=== PATIENT | female | born 1990 | race Caucasian/White ===

== ENCOUNTER 2021-05-09 10:49 | Outpatient (CLI) | payer OTHER, SELFPAY ==
--- NOTE | ~2021-05-09 | CT_ITS ---
EXAMINATION: CT abdomen pelvis wo con DATE: 05/09/2021 11:07 INDICATION: Nephrolithiasis presenting with right flank pain and hematuria. TECHNIQUE: Computed tomography (CT) of the abdomen and pelvis was performed without intravenous contr ast. Automated exposure control and iterative reconstruction technique were employed. The dose-length product was 453.52 mGy-cm. COMPARISON: None FINDINGS: Mild atelectasis at the lingula and anterobasal left lower lobe. Visualized inferior heart is normal. No pericardial or pleural effusion. Very small sliding-type hiatal hernia. Mild diffuse hepatic stea tosis. Gallbladder, spleen, pancreas and bilateral adrenal glands are normal. Bilateral nephrolithias is with 9 mm stone in the mid right kidney and a couple additional 2 mm stones at the lower pole of t he right and upper pole of the left kidneys. No hydronephrosis or stones along either the left or rig ht ureters. Bladder is normal. A couple phleboliths in the pelvis. The uterus is not identified and h as likely been surgically resected. Bowels including the appendix are normal. No free intraperitoneal gas or fluid. No pathologically enlarged abdominal or pelvic lymphadenopathy. Bones are unremarkable . IMPRESSION: 1. Bilateral nephrolithiasis. No ureteral stones or hydronephrosis. 2. Very small sliding-type hiatal hernia. Reviewed, dictated and finalized at location A.
== END 2021-05-09 10:50 | disposition home or self-care (01) ==
PROVIDERS: PCP Internal Medicine; Visit Provider Nurse Practitioner
DX: R31.9 Hematuria, unspecified (principal); R10.9 Unspecified abdominal pain; N20.0 Calculus of kidney; K44.9 Diaphragmatic hernia without obstruction or gangrene
CPT/HCPCS: 74176

== ENCOUNTER 2021-05-13 08:04 | Outpatient (CLI) | payer OTHER, SELFPAY ==
--- NOTE | ~2021-05-13 | XR_ITS ---
XR abdomen/kub 1V 05/13/2021 08:26 Indication: Renal stones Procedure: KUB Comparison: CT dated 05/09/2021. Findings: There is a punctate left renal stone partially obscured by bowel content. The right kidney is obscured by bowel content. There are pelvic phleboliths. Nonobstructive bowel gas pattern. Moderat e colonic fecal loading. Impression: 1: Left nephrolithiasis. Reviewed, dictated and finalized at location A. Impression: 1: Left nephrolithiasis.
== END 2021-05-13 08:05 | disposition home or self-care (01) ==
LOC: ANHIMG 08:07
PROVIDERS: PCP Internal Medicine; Visit Provider Urology
DX: N20.0 Calculus of kidney (principal)
CPT/HCPCS: 74018

== ENCOUNTER 2021-05-17 09:15 | Outpatient (CLI) | payer BC, OTHER, SELFPAY ==
--- NOTE | ~2021-05-17 | XR_ITS ---
EXAMINATION: XR abdomen/kub 1V INDICATION: Calcium kidney stone TECHNIQUE: Supine views of the abdomen were obtained on 2 radiographs. COMPARISON: 05/13/2021 FINDINGS: There is a 2 mm stone of the left kidney upper pole. There is a questionable 7 mm stone of the right kidney upper pole. A phlebolith is noted in the left pelvis. The bowel gas pattern is kait l. IMPRESSION: 1. Left nephrolithiasis and possible right nephrolithiasis. Reviewed, dictated and finalized at location B.
== END 2021-05-17 09:16 | disposition home or self-care (01) ==
LOC: ANHIMG 09:20
PROVIDERS: PCP Internal Medicine; Visit Provider Urology
DX: N20.0 Calculus of kidney (principal)
CPT/HCPCS: 74018

== ENCOUNTER 2021-05-18 01:45 | Day surgery (SDC) | payer BC, OTHER, SELFPAY ==
[2021-05-17 16:33] VITALS: BMI 34.7
[2021-05-18] VITALS (9 sets, daily range): BP systolic 118–136; BP diastolic 74–101; PULSE 57–81; RESP 12–19; TEMP 36.2–36.7; O2SAT 92–100
--- NOTE | ~2021-05-18 | XR_ITS ---
EXAMINATION: XR abdomen/kub 1V DATE: 05/18/2021 12:47 INDICATION: Prelithotripsy evaluation TECHNIQUE: A supine view of the abdomen on 2 radiographs was obtained. COMPARISON: 05/17/[address] dated 05/09/2021 FINDINGS: The 7 mm stone at the upper pole of the right kidney seen on the prior CT is likely obscured by gas a nd small amount of stool at the hepatic flexure of the colon. No definitive renal stones identified. A couple tiny phleboliths in the pelvis. No dilated bowel to suggest obstruction. Bones are unremarka ble. IMPRESSION: 1. No renal stones identified. The previously noted stone at the upper pole of the right kidney may b e obscured by the hepatic flexure of the colon. Reviewed, dictated and finalized at location A. IMPRESSION: 1. No renal stones identified. The previously noted stone at the upper pole of the right kidney may be obscured by the hepatic flexure of the colon.
--- NOTE | 2021-05-18 07:01 | WPDHPUPDATE1 ---
History and Physical Update Update Date/Time: 05/18/21 07:01 History and Physical has been reviewed, including an updated exam of the patient. There are NO changes in the patient's condition. Risks, benefits, and alternatives have been discussed and questions answered. Patient agrees to proceed with procedure.
[2021-05-18] MEDS: LACTATED RINGERS 1,000 ML 30 ML IV CONT (13:15)
[2021-05-18 13:33] LABS: Partial Thromboplastin Time 28.6 SECONDS (22.3-36.8); Prothrombin Time 12.7 Seconds (11.1-14.7)
[2021-05-18] MEDS: fentaNYL CITRATE INJ (*CRX) 100 MCG/2 ML VIAL 25 MCG IV PUSH ×5 (13:35→15:29)
[2021-05-18] MEDS: ACETAMINOPHEN 500 MG TABLET 1000 MG PO (13:37)
[2021-05-18 13:38] LABS: Hematocrit 42.5 % (37.0-47.0); Hemoglobin 13.8 g/dL (12.0-15.0)
--- NOTE | 2021-05-18 13:43 | WPDANESEPPF ---
Anes - Initial Pre Proc Eval Procedure: Operation Date: 05/18/21 14:30 Proposed Procedures p Right Renal Extracorporeal Shock Wave Lithotripsy - Jas Riddle MD Date/Time: 05/18/21 13:43 Surgeon: Jas Riddle MD Pre Op Diagnosis: right renal kidney stones Patient Data Age: 30 Gender: F Height: 1.68 m Weight: 97.52 kg Allergies Allergy/AdvReac Type Severity Reaction Status Date / Time No Known Allergies Allergy Unknown Verified 02/22/14 14:35 Home Medications Medication Instructions Recorded Confirmed Type clonazepam 0.5 mg tablet 0.5 mg PO DAILY PRN #20 tablet 05/09/21 05/18/21 Rx duloxetine 30 mg capsule,delayed 30 mg PO DAILY #30 cap 05/09/21 05/18/21 Rx release tramadol 50 mg tablet 50 mg PO Q6H PRN #20 tablet 05/10/21 05/18/21 Rx Laboratory Tests 05/18/21 05/18/21 13:14 13:31 Hgb 13.8 g/dL g/dL (12.0-15.0) Hct 42.5 % % (37.0-47.0) PT 12.7 Seconds Seconds (11.1-14.7) INR 1.0 APTT 28.6 SECONDS SECONDS (22.3-36.8) Patient hx anesthesia problems: other (MOTION SICKNESS) Family hx anesthesia problems: none PMFSH Past Medical History Medical History Anxiety Arthritis Rheumatoid arthritis Surgical History Surgical History H/O tubal ligation History of partial hysterectomy S/P ureteral stent placement Family History Family History Father Depression Anxiety Alcohol abuse Heart disease Cerebrovascular accident Mother Blood clotting disorder Grandparent Diabetes mellitus Hypertension Anxiety Depression Cerebrovascular accident Heart disease Social History Social History Smoking status: Never smoker Alcohol intake: current Anes - Eval Final PreProcedure Day of Procedure 05/18/21 13:43 Patient weight: obese Heart: regular rate and rhythm Lungs: clear to auscultation Airway: Mallampati scale class II Neurological: alert and oriented Last oral intake: >/= 8 hours ASA classification: II Emergent: no Anesthetic plan: proceed Anesthesia type and monitoring: general LMA and standard monitoring Informed Consent: The patient's anesthetic plan and its attendant risks and benefits were discussed with the patient/family/POA. Questions were solicited and answers provided to the satisfaction of the patient/family/POA.
[2021-05-18] MEDS: SCOPOLAMINE 1.5 MG PATCH TRANSDERM (13:57)
[2021-05-18] MEDS: ceFAZolin 2 GM/D5W 50 ML 2 GM/50 ML BAG IVPB (13:58)
--- NOTE | 2021-05-18 14:24 | W.PM.PROC2 ---
Procedure Note - Detailed Date of Procedure 05/18/21 Pre-op Diagnosis right renal kidney stones Post-op Diagnosis same Procedure Performed Right ESWL Surgeon Jas Riddle MD Business Strategist None Anesthesia general Description of Procedure The patient was brought to the operative suite where he was placed in the supine position on the Dornier lithotripsy table. The focal point of the lithotripter was placed at a 9mm right renal calculus. A total of 2500 shocks were delivered at a power setting of 4. There appeared to be good fragmentation of the stone. The patient tolerated the procedure well and was taken to the recovery room in good condition. Estimated Blood Loss 0 Drains No Packing No Pathology none sent Complications No immediate complications Condition stable Disposition PACU
[2021-05-18] MEDS: KETOROLAC 30 MG/ML VIAL (*BKC) IV PUSH (14:33)
[2021-05-18] MEDS: oxyCODONE HCL (*CRX) 5 MG TAB IR PO (15:53)
== END 2021-05-18 16:30 | disposition home or self-care (01) ==
PROVIDERS: Anesthesiology; PCP Internal Medicine; Visit Provider Urology
PROC: (CPT 50590; principal; 2021-05-18 14:30)
DX: N20.0 Calculus of kidney (principal); F41.9 Anxiety disorder, unspecified; M19.90 Unspecified osteoarthritis, unspecified site; M06.9 Rheumatoid arthritis, unspecified; E66.9 Obesity, unspecified; Z68.34 Body mass index [BMI] 34.0-34.9, adult; Z51.81 Encounter for therapeutic drug level monitoring; Z79.899 Other long term (current) drug therapy
CPT/HCPCS: 50590; 36415; 74018; 85014; 85018; 85610; 85730; A9270; J0690; J1100; J1885; J2250; J2405; J2704; J3010; J7120

== ENCOUNTER 2021-05-18 11:41 | Outpatient (CLI) | payer BC, OTHER, SELFPAY ==
[2021-05-18 12:23] LABS: EDCOVIDSCREEN Negative (Negative)
== END 2021-05-18 11:42 | disposition home or self-care (01) ==
LOC: ANHSURGERY 11:42
PROVIDERS: PCP Internal Medicine; Visit Provider Urology
DX: Z01.812 Encounter for preprocedural laboratory examination (principal); Z20.822 Contact with and (suspected) exposure to COVID-19
CPT/HCPCS: 87426; C9803

== ENCOUNTER 2021-10-10 13:37 | Outpatient (CLI) | payer BC, SELFPAY ==
--- NOTE | ~2021-10-10 | MMUS_ITS ---
EXAMINATION: MM diagnostic ilene RT w kaveh, US breast RT limited HISTORY: Palpable lump of the lower-outer quadrant of the right breast. TECHNIQUE: Craniocaudal, mediolateral, and mediolateral oblique 3-D tomosynthesis images of the right breast were performed and synthetic 2-D images were generated. CAD analysis was submitted and interp reted. High resolution limited right breast ultrasound was performed. COMPARISON: None, baseline BREAST PARENCHYMAL COMPOSITION: The breast is extremely dense, which lowers the sensitivity of mammog helder. FINDINGS: MAMMOGRAPHIC FINDINGS: There is no evidence of suspicious mass, calcification, or architectural distortion to suggest malign jimmie. ULTRASOUND: There is a 1.1 x 0.5 cm hypoechoic mass with irregular margins, posterior acoustic enhancement, and n o internal vascularity at the 7:00 location 3 cm from the nipple corresponding to the palpable abnorm ality of concern. IMPRESSION: 1. Indeterminate right breast mass. 2. Ultrasound-guided biopsy is recommended. BI-RADS category 4, suspicious findings. Reviewed, dictated and finalized at location A. R COMMISSIONER IMPRESSION: 1. Indeterminate right breast mass. 2. Ultrasound-guided biopsy is recommended. BI-RADS category 4, suspicious findings.
== END 2021-10-10 13:38 | disposition home or self-care (01) ==
PROVIDERS: PCP Internal Medicine; Visit Provider Nurse Practitioner
DX: R92.8 Other abnormal and inconclusive findings on diagnostic imaging of breast (principal)
CPT/HCPCS: 76642; 77061; 77065; G0279

== ENCOUNTER 2023-09-08 11:02 | Emergency (ER) | payer BC, SELFPAY ==
--- NOTE | ~2023-09-08 | XR_ITS ---
EXAMINATION: XR foot RT min 3V DATE: 09/08/2023 11:26 INDICATION: Lateral right ankle pain and swelling post running injury TECHNIQUE: Dorsoplantar, two oblique and lateral views of the right foot were obtained. COMPARISON: None. FINDINGS: Bone alignment is normal. Subtle linear lucency projecting across portions of the lateral base of the fifth metatarsal which is best appreciated on the lateral projection but without definitive cortical interruption suspicious for nondisplaced fracture. No other lesions suspicious for fracture identifi ed. Joint spaces are normal. Soft tissue swelling along the dorsolateral aspect of the midfoot. IMPRESSION: 1. Suspicion for nondisplaced fracture at the lateral base of the right fifth metatarsal. Correlate f or point tenderness at this location. Reviewed, dictated and finalized at location A. IMPRESSION: 1. Suspicion for nondisplaced fracture at the lateral base of the right fifth m etatarsal. Correlate for point tenderness at this location.
[2023-09-08 11:08] VITALS: BP 123/86; PULSE 75; RESP 20; TEMP 36.6; O2SAT 98
--- NOTE | 2023-09-08 11:15 | ED.LOWEXIN ---
HPI - Extremity Injury (Lower) General Chief Complaint: Extremity Injury, Lower Stated Complaint: Right Foot Injury Source: patient and RN notes reviewed History of Present Illness HPI Narrative: 32 yo F presents to urgent care with complaints of right foot pain and swelling. Pt states she was running down the football field, cheering her son on, yesterday, when she fell and injured her right foot. Pt states she is unable to put any weight on her foot. Pt reports tingling to her right 1st and 2nd toes. Denies any other injury and has no other complaints. Pt did take 800 mg of ibuprofen for her pain. Related Data Allergies Allergy/AdvReac Type Severity Reaction Status Date / Time No Known Allergies Allergy Unknown Verified 09/08/23 11:13 Review of Systems Review of Systems: CONSTITUTIONAL: Denies fever, chills, or sweats. EYES: Denies visual changes, redness, or discharge. ENT: Denies otalgia and sore throat CARDIOVASCULAR: Denies chest pain, palpitations, or edema. RESPIRATORY: Denies cough or dyspnea. GASTROINTESTINAL: Denies abdominal pain, nausea, vomiting, or diarrhea. GENITOURINARY: Denies dysuria or hematuria. SKIN: Denies rash or itching. MUSCULOSKELETAL: Right foot pain NEUROLOGIC: Tingling to right 1st and 2nd toes. Pertinent positives per HPI. 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) Anxiety Arthritis Rheumatoid arthritis Surgical History Surgical History (Updated 02/11/23 @ 07:45 by Darline Terrell) H/O lumpectomy (~01/2023) Right breast H/O tubal ligation History of partial hysterectomy S/P ureteral stent placement Family History Family History Father Depression Anxiety Alcohol abuse Heart disease Cerebrovascular accident Mother Blood clotting disorder Grandparent Diabetes mellitus Hypertension Anxiety Depression Cerebrovascular accident Heart disease Other Breast cancer Paternal Aunt Social History Social History (Updated 02/11/23 @ 07:40 by Darline Terrell) Social History: caffeine-coffee daily Smoking status: Never smoker Alcohol intake: current Alcohol use details: wine-monthly Substance use: never Living arrangements: with family Comments At the time of my signature, I reviewed and agree with the nursing past medical, surgical, social, and family history. There is no relevant family history pertinent to the patient complaint. Exam Narrative: GENERAL: This is a well-nourished, well-developed patient, in no apparent distress. HEAD: normocephalic, atraumatic. EYES: Sclera clear/white. Vision is grossly intact. EARS: External ears normal, auditory canals clear and without drainage. Hearing grossly intact. NOSE: External nose normal with no obvious nasal discharge, nares without redness, no rhinorrhea. THROAT: Mucous membranes moist, posterior pharynx clear. NECK: Neck supple, non-tender without lymphadenopathy, masses or thyromegaly. CARDIOVASCULAR: Regular rate RESPIRATORY: No respiratory distress SKIN: warm, intact with no suspicious lesions or rash, good texture and turgor. NEURO: awake, alert, and oriented to person, place and time. EXTREMITIES: edema and tenderness to right mid foot. Specifically tenderness to right lateral , mid foot. BACK: Nontender without deformity or crepitus. No flank tenderness. Course Course Level of Care: Express Care Visit Vital Signs Vital signs: Vital Signs Temperature 97.9 F 09/08/23 11:08 Pulse Rate 75 09/08/23 11:08 Respiratory Rate 20 09/08/23 11:08 Blood Pressure 123/86 09/08/23 11:08 Pulse Oximetry 98 09/08/23 11:08 Oxygen Delivery Room Air 09/08/23 11:08 Temperature 97.9 F 09/08/23 11:08 Pulse Rate 75 09/08/23 11:08 Respiratory Rate 20 09/08/23 11:08 Blood Pressure 123/86 09/08/23 11:08 Pulse Oximetry 98 09/08/23 11:08 Oxygen Deli
== END 2023-09-08 11:52 | disposition home or self-care (01) ==
PROVIDERS: Emergency Provider Nurse Practitioner Family
DX: S92.901A Unspecified fracture of right foot, initial encounter for closed fracture (principal); W19.XXXA Unspecified fall, initial encounter; Y93.02 Activity, running; M19.90 Unspecified osteoarthritis, unspecified site; M06.9 Rheumatoid arthritis, unspecified; Z90.711 Acquired absence of uterus with remaining cervical stump; Z96.0 Presence of urogenital implants
CPT/HCPCS: 73630; 99214; G0463

== ENCOUNTER 2023-09-22 12:10 | Outpatient (CLI) | payer BC, SELFPAY ==
--- NOTE | ~2023-09-22 | XR_ITS ---
EXAMINATION: XR foot RT 2V INDICATION: Right foot pain TECHNIQUE: Two views of the right foot are obtained. COMPARISON: 09/08/2023 FINDINGS: Bone alignment is normal. No definite fracture is identified. There is mild osteoarthritis of multiple interphalangeal joints. IMPRESSION: 1. No acute osseous abnormality. Reviewed, dictated and finalized at location B. HER WARP
--- NOTE | ~2023-09-22 | XR_ITS ---
EXAMINATION:XR_CERV2-3V_CR DATE: 09/22/2023 12:27 INDICATION: Neck pain TECHNIQUE: AP, lateral, and lateral swimmers views of the cervical spine are provided. COMPARISON: None FINDINGS: There is straightening of the cervical spine which can be positional or due to muscular spa sm. Alignment is normal. The odontoid process is intact. No fracture is identified. Vertebral body he ights and disk spaces are normal. Prevertebral soft tissues are normal. IMPRESSION: 1. No acute osseous abnormality. Reviewed, dictated and finalized at location B. 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
== END 2023-09-22 12:11 | disposition home or self-care (01) ==
LOC: ANHBWCIMG 12:12
PROVIDERS: Visit Provider Nurse Practitioner
DX: M54.2 Cervicalgia (principal); M79.671 Pain in right foot
CPT/HCPCS: 72040; 73620

== ENCOUNTER 2023-10-06 14:27 | Outpatient (CLI) | payer BC, SELFPAY ==
[2023-10-06 18:38] LABS: Alanine Aminotransferase 25 U/L (6-35); Albumin Level 4.4 g/dL (3.5-5.1); Alkaline Phosphatase 73 U/L (38-126); Anion Gap 8 mmol/L (8-16); Aspartate Amino Transferase 36 U/L (14-36); Bilirubin,Total 0.6 mg/dL (0.2-1.3); Blood Urea Nitrogen 8 mg/dL (7-17); Calcium 10.8 mg/dL (8.4-10.2); Carbon Dioxide 30 mmol/L (22-30); Chloride 104 mmol/L (98-107); Cholesterol 147 mg/dL (0-200); Estimated Glomerular Filt Rate > 60; Glucose 79 mg/dL (65-110); HDL Direct 36 mg/dL; Sodium 142 mmol/L (137-145); Triglycerides 217 mg/dL (<150)
[2023-10-06 20:53] LABS: LDL Cholesterol Direct 81 mg/dL
== END 2023-10-06 14:28 | disposition home or self-care (01) ==
PROVIDERS: PCP Internal Medicine; Visit Provider Nurse Practitioner
DX: Z13.228 Encounter for screening for other metabolic disorders (principal); Z13.220 Encounter for screening for lipoid disorders; F32.9 Major depressive disorder, single episode, unspecified; M06.9 Rheumatoid arthritis, unspecified; E55.9 Vitamin D deficiency, unspecified; F41.9 Anxiety disorder, unspecified
CPT/HCPCS: 36415; 80053; 80061; 84443

== ENCOUNTER → 2024-01-20 10:01 | Outpatient (CLI) | payer BC, SELFPAY ==
--- NOTE | ~2024-01-20 | MR_ITS ---
EXAMINATION: MR brain/brain stem wo/w con DATE: 01/20/2024 10:45 INDICATION: Migraine, unspecified, not intractable. TECHNIQUE: Magnetic resonance imaging (MRI) of the brain and brainstem was performed without and with 20 mL MultiHance intravenous contrast. COMPARISON: None. FINDINGS: There is no intracranial hemorrhage, acute infarction, or abnormal intracranial mass lesion . The ventricles are normal in size. The mastoid air cells are normal. The orbits are normal. The par anasal sinuses are clear. IMPRESSION: 1. Normal brain. Reviewed, dictated and finalized at location E. 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 Normal brain.
== END ==
PROVIDERS: PCP Nurse Practitioner; Visit Provider Nurse Practitioner
DX: G43.909 Migraine, unspecified, not intractable, without status migrainosus (principal)
CPT/HCPCS: 70553; A9577